=== PATIENT | female | born 1950 | race Caucasian/White ===

== ENCOUNTER 2022-02-07 15:00 | Emergency (ER) | payer MEDICARE, OTHER ==
[2022-02-07] MEDS ORDERED: Iopamidol 300 61% 100 ML VIAL FS ONE (15:17)
[2022-02-07 16:11] LABS: Hemoglobin 11.8 g/dL (12.0-15.5); Mean Corpuscular HGB CONC 35.3 g/dL (32.0-36.0); Mean Corpuscular Hemoglobin 36.6 pg (27.0-33.0); Mean Corpuscular Volume 103.7 fl (81.6-98.3); Mean Platelet Volume 10.1 fl (7.4-10.4); Platelet Count 136 10x3/uL (150-450); RBC Distribution Width 14.3 % (11.5-14.5); Red Blood Cell (RBC) Count 3.22 10x6/uL (3.90-5.03); White Blood Cell (WBC) Count 5.8 10x3/uL (3.5-10.5)
[2022-02-07 16:36] LABS: ALT (SGPT) 31 U/L (8-55); AST (SGOT) 52 U/L (5-34); Alkaline Phosphatase 244 U/L (40-110); Anion Gap 11 mmol/L (10-20); BUN (Urea Nitrogen) 12 mg/dL (9.8-20.1); Bilirubin, Total 3.3 mg/dL (0.2-1.2); Calc. Creatinine Clearance 0 mL/min (70-130); Carbon Dioxide 25 mmol/L (23-31); Chloride 99 mmol/L (98-107); Estimated GFR 86; Globulin 4.4 g/dL (2.4-3.5); Glucose 100 mg/dL (80-115); Lipase 66 U/L (8-78); Manual Diff?? YES; Potassium 3.9 mmol/L (3.5-5.1); Protein, Total 7.4 g/dL (5.8-8.1); Sodium 131 mmol/L (136-145)
[2022-02-07 16:37] LABS: MDiff Complete? YES
[2022-02-07 16:43] LABS: Band 3 % (5-11); Eosinophils 2 % (0-10); Lymphocytes 35 % (21-51); Monocytes 14 % (0-10); Neutrophil 43 % (42-75); Reactive Lymphocytes 3 % (0-10)
[2022-02-07 16:44] LABS: Platelet Morphology Comment Appears Decreased
[2022-02-07] MEDS ORDERED: Morphine 4 MG/ML VIAL ONE ×2 (16:52→19:00)
[2022-02-07] MEDS ORDERED: Ondansetron PF 4 MG/2 ML Vial ONE (16:53)
[2022-02-07] MEDS ORDERED: diphenhydrAMINE 50 MG/ML VIAL ONE ×2 (19:28→19:34)
[2022-02-07 19:36] LABS: Bilirubin Neg (Negative); Clarity Clear (Clear); Glucose, Urine (Dipstick) Normal (Negative); Ketone, Urine Negative (Negative); Nitrite Negative (Negative); Protein, Urine (Dipstick) 15 mg/dl (Neg-Trace)
[2022-02-07 19:44] LABS: Blood, Urine Negative (Negative); Leukocyte 100 (Negative)
[2022-02-07 20:24] LABS: Bacteria/HPF 1+ HPF (None Seen); Mucous/LPF 1+ LPF (<2+); RBC/HPF 0-3 HPF (0-3); Squamous Epithelial 0-3 HPF (0-3); WBC/HPF 0-3 HPF (0-3)
== END 2022-02-07 20:48 | disposition home or self-care (01) ==
LOC: CSHERS 15:00
DX: K74.5 Biliary cirrhosis, unspecified (principal)
CPT/HCPCS: 36415; 74177; 80053; 81003; 81015; 83690; 84484; 85025; 93005; 96361; 96374; 96375; 96376; J1200; J2270; J2405; Q9967